=== PATIENT | female | born 1990 | race Caucasian/White ===

== ENCOUNTER 2018-08-06 01:47 | Emergency (ER) | payer OTHER ==
[~2018-08-06] VITALS: Ht 175.3 cm; Wt 131.8 kg
[2018-08-06 01:54] VITALS: TEMP 98
[2018-08-06] MEDS ORDERED: SINGULAIR 110 MG/TAB PO (01:56)
[2018-08-06] MEDS ORDERED: ZYRTEC 10MG10 MG PO (01:56)
[2018-08-06] MEDS ORDERED: ZOLOFT 50MG50 MG PO (01:56)
[2018-08-06] MEDS ORDERED: 00186-0372-20 IH (01:56)
[2018-08-06] MEDS ORDERED: VITAMIND3 5000 PO (01:57)
[2018-08-06] MEDS ORDERED: YAZ 28 3 MG-0.01 TAB PO (01:57)
[2018-08-06] MEDS ORDERED: XOPENEX HF0.045 MG/A IH (02:07)
[2018-08-06 02:52] VITALS: BP 154/108; PULSE 90
== END 2018-08-06 02:52 | disposition home or self-care (01) ==
LOC: COL.ER 01:47
DX: S93.401A Sprain of unspecified ligament of right ankle, initial encounter (principal); J45.909 Unspecified asthma, uncomplicated; F32.9 Major depressive disorder, single episode, unspecified; X50.1XXA Overexertion from prolonged static or awkward postures, initial encounter; Y92.009 Unspecified place in unspecified non-institutional (private) residence as the place of occurrence of the external cause